=== PATIENT | male | born 1950 | race Caucasian/White ===

== ENCOUNTER 2018-09-21 05:20 | Day surgery (SDC) | payer MEDICARE ==
[2018-09-20 14:59] LABS: HEMATOCRIT 41.2 % (42.0-54.0); MCH 31.2 pg (26.0-34.0); MCV 91.8 fL (80.0-100.0); MEAN PLATELET VOLUME 9.2 fL (7.4-10.4); RBC 4.49 10x6/uL (4.20-6.10); RDW 13.9 % (11.5-14.5); WBC 7.9 10x3/uL (4.8-10.8)
[~2018-09-21] VITALS: Ht 180.3 cm; Wt 85.7 kg
[~2018-09-21 05:20] MED LIST: BAYER CHEWABLE81 MG PO; CARVEDILOL TAB 3.1 PO; CENTRUM MEN'S1 EACH PO; FISH OIL 1,0001 CA1 PO; FLOMAX0.4 MG PO; GLUCOSAMINE HC500 MG PO; LOVASTATIN20 MG PO; MELATONIN5 MG PO; OMEPRAZOLE CAP 20M PO; PLAVIX75 MG PO; PROSCAR5 MG PO; SYMBYAX 6-251 UDCAP PO
[2018-09-21 06:33] VITALS: BP 139/62; Ht 180.3 cm; Wt 85.7 kg
[2018-09-21] MEDS ORDERED: PERCOCET 10-321 EAC1 PO (09:26)
--- NOTE | 2018-11-28 20:19 | OP ---
PATIENT NAME: MART CRAVEN MEDICAL RECORD: [id number] :46 LOCATION:[facility] DATE: SURGEON: SUNDAR THOMPSON MD DATE OF OPERATION: 09/21/2018 PREOPERATIVE DIAGNOSES: Lumbar spinal stenosis and foraminal stenosis at L2-L3 and L3-L4 on the right with right L3 and L4 radiculopathies. POSTOPERATIVE DIAGNOSES: Lumbar spinal stenosis and foraminal stenosis at L2-L3 and L3-L4 on the right with right L3 and L4 radiculopathies secondary to lumbar spinal stenosis. SURGEON: Sundar Thompson MD PROCEDURE: Right L2-L3 and L3-4 lumbar laminectomy, medial facetectomy and foraminotomy. DESCRIPTION OF TECHNIQUE: After induction of general endotracheal anesthesia, the patient was rolled prone on a Pradeep frame. Lumbar spine was prepped and draped in usual sterile fashion. Fluoroscopic x-ray and spinal needle localized the L2, L3, and L4 interspace on the right side. An incision was carried out from the spinous process of L2-L4. After infiltration of 1:100,000 epinephrine and 1% lidocaine into the subcutaneous tissues, a Bovie cautery was used to expose the spinous processes and lamina of L2, L3 and L4 on the right side. A Umang retractor was used for exposure. A microscope and Midas Romeo drill were used to perform a laminectomy, medial facetectomy, and foraminotomy at L2, L3, and L4 on the right side. Hypertrophied ligamentum flavum was removed with Cloward rongeurs. This relieved the compression on the dura on the right. Foraminotomy was carried out with a 2-mm Cloward rongeurs on the right side. This decompressed the L2, L3, and L4 nerve roots well. Meticulous hemostasis was maintained throughout the wound. Wound was irrigated with copious amounts of Ancef irrigant solution. The fascia was closed with 2-0 Vicryl suture. The subdermal layer was closed with 3-0 Vicryl suture. Skin was closed with debi. A sterile dressing was applied to the wound. The patient was awakened in good condition, taken to recovery. All counts were reported as correct. The estimated blood loss was minimal. TRANSINT:[id number] Voice Confirmation ID: [id number] DOCUMENT ID: [id number] SUNDAR THOMPSON MD at 2019 CC: [id number] DICTATION DATE: 11/22/18 1535 [employer] JOURNEY[employer] ELECTRICIAN: 11/23/18 0043 [facility] 09/21/18 [id number] [place] [address]
== END 2018-09-21 11:50 | disposition home or self-care (01) ==
LOC: D.OPS 05:20 → D.PAN 07:30 → D.OPS 11:50
PROVIDERS: Anesthesiology; ATTEND Neurological Surgery
DX: M48.061 Spinal stenosis, lumbar region without neurogenic claudication (principal); M54.16 Radiculopathy, lumbar region